=== PATIENT | female | born 1980 | race Caucasian/White ===

== ENCOUNTER 2025-02-09 16:46 | Emergency (ER) | payer OTHER, SELFPAY ==
[2025-02-09] VITALS (9 sets, daily range): BP systolic 107–137; BP diastolic 70–87; PULSE 58–71; RESP 15–20; TEMP 36.9; O2SAT 100
--- NOTE | ~2025-02-09 | XR_ITS ---
EXAMINATION: XR chest 2V, 02/09/2025 17:25 CLEANING VALIDATION CONSULTANT HISTORY: chest pain COMPARISON: No comparisons available. Technique: 2 views obtained. Findings: The lungs are clear, no effusion. No pneumothorax. Heart is normal size. Mediastinal and hilar contours are within normal limits. Bony thorax no acute abnormality. Impression: No acute cardiopulmonary abnormality. Reviewed, dictated and finalized at location P. NING VALIDATION CONSULTANT Impression: No acute cardiopulmonary abnormality.
--- NOTE | 2025-02-09 16:48 | ECG_ITS ---
Test Date: 2025-02-09 16:56:40 Measurements Intervals [place] Rate: 70 P: 65 MI: 186 QRS: 81 QRSD: 87 T: 67 QT: 393 QTc: 425 Interpretive Statements SINUS RHYTHM BASELINE ARTIFACT- I, AVR, AVL, AVF, V1 NORMAL ECG No previous ECG available for comparison Electronically Signed On 02-09-2025 20:25:39 GENERAL ACCOUNTING MANAGER by Leonidas Millan D.O.
[2025-02-09 17:14] LABS: Hematocrit 38.9 % (37.0-47.0); Hemoglobin 12.8 g/dL (12.0-15.0); Immature Granulocyte Percent A 0.1 % (0-0.5); Lymphocytes Absolute Auto 1.82 K/mm3 (0.9-3.2); Mean Corpuscular HGB Conc 32.9 g/dl (32-36); Mean Corpuscular Hemoglobin 32.4 pg (26-34); Mean Corpuscular Volume 98.5 fl (80-100); Nucleated Red Blood Cells Absolute Auto 0.000 K/mm3 (0.0-0.012); Nucleated Red Blood Cells Perc 0.0 % (0.0-0.2); Platelet Count Result 262 k/mm3 (150-375); Red Blood Count 3.95 M/mm3 (4.2-5.4); White Blood Count 7.2 K/mm3 (4.5-10.0)
[2025-02-09 17:26] LABS: Alanine Aminotransferase 37 U/L (6-35); Albumin Level 4.4 g/dL (3.5-5.1); Alkaline Phosphatase 64 U/L (38-126); Anion Gap 2 mmol/L (4-12); Aspartate Amino Transferase 34 U/L (14-36); Bilirubin,Total 0.5 mg/dL (0.2-1.3); Blood Urea Nitrogen 14 mg/dL (7-17); Calcium 9.1 mg/dL (8.4-10.2); Carbon Dioxide 29 mmol/L (22-30); Chloride 105 mmol/L (98-107); Estimated CRCL calculation 97 ml/min; Estimated Glomerular Filt Rate > 60; Glucose 96 mg/dL (65-110); Lipase 115 U/L (23-300); Potassium 3.7 mmol/L (3.4-5.0); Sodium 136 mmol/L (137-145); Total Protein 7.5 g/dL (6.3-8.2)
[2025-02-09 17:27] LABS: INR 1.0; Prothrombin Time 13.3 Seconds (11.1-14.7)
[2025-02-09 17:28] LABS: Partial Thromboplastin Time 25.2 Seconds (22.3-36.8)
[2025-02-09 17:38] LABS: Troponin I < 0.012 ng/mL (0.000-0.034)
--- NOTE | 2025-02-09 19:17 | ED.CHESTPAIN ---
HPI - Chest Pain General Chief Complaint: Chest Pain Stated Complaint: chest pain Time Seen by Provider: 02/09/25 19:11 Source: patient Mode of arrival: ambulatory Limitations: no limitations History of Present Illness HPI narrative: 44 years old white female came to the ED by private car complaining of intermittent sharp pain radiating left upper extremity going to chest last for few seconds and usually comes at rest. Patient report a lot of stress going on in her life lately. She denies any fever, chills, nausea, vomiting, shortness of breath. Related Data Allergies Allergy/AdvReac Type Severity Reaction Status Date / Time No Known Allergies Allergy Verified 02/09/25 17:07 Review of Systems Review of Systems: All systems reviewed & are unremarkable except as noted in HPI and below Exam Narrative: General appearance: Well-developed, well-nourished Skin: Normal color Head: Normocephalic, nontraumatic Eyes: Clear conjunctiva ENT: Oropharynx normal, ears normal, nose normal Neck: Supple, nontender Chest and respiratory: Airway patent, no respiratory distress, no accessory muscle use Heart: Regular rate/rhythm Abdomen: Soft, nontender, no organomegaly, quiet bowel sounds Vascular: Normal peripheral pulses, normal capillary refill. Musculoskeletal: Normal range of motion, nontender back Neurologic: Alert and oriented ?3, CAR DESIGNER is normal as tested, no gross motor deficit Course Course Emergency Course: Patient presents with intermittent left upper extremity pain radiating to left chest last for few seconds, lot of stress lately Vital signs are stable Physical examination is unremarkable Differential diagnosis anxiety like symptoms, atypical chest pain, unspecified left upper extremity pain Blood workup today include CBC, CMP, troponin and coags showed no significant abnormality EKG showed normal sinus rhythm, no acute abnormality Chest x-ray showed no acute abnormality Cardiac score is 1 Diagnosis anxiety like symptoms The pt was discharged to home.the pt,s condition upon discharge was fair,education was provided to the pt in reference to the final impression,discharge study results,treatment,prognosis and need for follow up . Vital Signs Vital signs: Vital Signs Temperature 36.9 C 02/09/25 17:01 Pulse Rate 67 02/09/25 17: Respiratory Rate 20 02/09/25 17:01 Blood Pressure 137/78 02/09/25 17:01 Pulse Oximetry 100 02/09/25 17:01 Oxygen Delivery Room Air 02/09/25 17:01 Temperature 36.9 C 02/09/25 17:01 Pulse Rate 67 02/09/25 20:49 Respiratory Rate 20 02/09/25 20:49 Blood Pressure 128/87 02/09/25 20:49 Pulse Oximetry 100 02/09/25 20:49 Oxygen Delivery Room Air 02/09/25 17:12 [facility] Differential Diagnosis Differential Diagnosis: As above Lab Data 02/09/25 17:08 02/09/25 17:08 Labs: Lab Results 02/09/25 Range/Units 17:08 WBC 7.2 (4.5-10.0) K/mm3 RBC 3.95 L (4.2-5.4) M/mm3 Hgb 12.8 (12.0-15.0) g/dL Hct 38.9 (37.0-47.0) % MCV 98.5 (80-100) fl MCH 32.4 (26-34) pg MCHC 32.9 (32-36) g/dl RDW 12.3 (11.5-14.5) % Plt Count 262 (150-375) k/mm3 MPV 10.8 H (7.4-10.4) fl Immature Gran % (Auto) 0.1 (0-0.5) % Neut % (Auto) 63.6 (45.5-73.1) % Lymph % (Auto) 25.2 (18.3-44.2) % Young % (Auto) 8.9 H (2.6-8.5) % Eos % (Auto) 1.2 (0-4.4) % Baso % (Auto) 1.0 (0.2-1.2) % Lymph # (Auto) 1.82 (0.9-3.2) K/mm3 Young # (Auto) 0.6 (0.1-0.6) K/mm3 Eos # (Auto) 0.1 (0-0.3) K/mm3 Baso # (Auto) 0.1 (0.0-0.1) K/mm3 Abs Immat Gran (auto) 0.01 (0.00-0.031) K/mm3 Absolute Neuts (auto) 4.6 (1.3-6.7) K/mm3 Absolute Nucleated RBC 0.000 (0.0-0.012) K/mm3 Nucleated RBC % 0.0 (0.0-0.2) % PT 13.3 (11.1-14.7) Seconds INR 1.0 APTT 25.2 (22.3-36.8) Seconds Sodium 136 L (137-145) mmol/L Potassium 3.7 (3.4-5.0) mmol/L Chloride 105 (98-107) mmol/L Carbon Dioxide 29 (22-30) mmol/L Anion Gap 2 L (4-12) mmol/L BUN 14 (7-17) mg/dL Creatinine 0.65 L (0.7-1.0) mg/dL Estim Creat Clear Calc 97 ml/min Estimated GFR > 60 (59 - ) Glucose 96 (65-110) mg/dL Calcium 9.1 (8.4-10.2) mg/dL Total Bilirubin 0.5 (0.2-1.3) mg/dL AST 34 (14-36) U/L ALT 37 H (6-35) U/L Alkaline Phosphatase 64 (38-126) U/L Troponin I < 0.012 (0.000-0.034) ng/mL Total Protein 7.5 (6.3-8.2) g/dL Albumin 4.4 (3.5-5.1) g/dL Lipase 115 (23-300) U/L Imaging Data Radiologist's impression: ITS Impressions Chest X-Ray 02/09/25 17:34 Impression: No acute cardiopulmonary abnormality. ECG Data EKG #1: Attestation: I personally reviewed and interpreted this ECG as follows: ECG completion date: 02/10/25 Interpretation: Normal sinus rhythm at 70 beats per minute, baseline artifact, normal EKG, no previous EKG available for comparison Critical Care Time Critical Care Time Critical Care Time: No Discharge Plan Discharge Clinical Impression: Anxiety Patient Disposition: Home Condition: Stable Instructions: Stress (ED) Additional Instructions: RETURN IF SYMPTOMS ARE WORSENING , CALL YOUR FAMILY PHYSICIAN FOR APPOINTMENT, TAKE TYLENOL NEEDED FOR ACHES AND PAIN, CONTINUE HOME MEDICATIONS. Patient Language: Andorran Prescriptions: New clonazepam 0.25 mg tablet,disintegrating 0.25 mg PO BID Qty: 14 0RF Follow-up/Referrals: PHYSICIAN NOT ON STAFF,NONSTAFF [Non-Staff]
[2025-02-09] MEDS: LORazepam (*CRX) 1 MG TABLET PO (20:40)
== END 2025-02-09 20:50 | disposition home or self-care (01) ==
PROVIDERS: Family Medicine; Emergency Provider Emergency Medicine
DX: F41.9 Anxiety disorder, unspecified (principal)
CPT/HCPCS: 36415; 71046; 80053; 83690; 84484; 85025; 85610; 85730; 93005; 99284; A9270